=== PATIENT | male | born 1990 | race African-American/Black ===

== ENCOUNTER 2016-11-17 23:17 | Emergency (ER) | payer BC ==
[~2016-11-17] VITALS: Ht 177.8 cm; Wt 88.5 kg
[~2016-11-17 23:17] MED LIST: AZIT250T5 PO; BENZ-13 PO; CEFD300C3 PO; HYDR-3812 PO; IBUP-1780 PO; PRD20T PO; TRIA10.8 NSEACH
[2016-11-17] MEDS ORDERED: FAMO-119 PO (23:26)
[2016-11-17] MEDS ORDERED: DOXY100T2 PO (23:26)
[2016-11-17] MEDS ORDERED: ONDA4TAB8 PO (23:26)
--- NOTE | 2016-11-17 23:39 | ED Integumentary General ---
General Chief Complaint: Bite-Animal/Human/Insect Stated Complaint: SPIDER BITE,POSS FEVER,ACHES ALL OVER Nursing Triage Note: patient reports being bite by spider this morning at 0500. patient reports being evaluated for this earlier today and given medications for it Source: patient, RN notes reviewed Exam Limitations: no limitations History of Present Illness Time seen by provider: 23:22 Initial Comments Patient presents c/ complaint of suspected spider bite that occurred @ approx. 05:00 this AM. Was seen @ urgent care earlier today and given Doxycycline, Pepcid, and Zofran. Doesn't like Benadryl and has taken some Claritin. Was apparently not given any steroids by all reports. Timing/Duration: this morning Severity: moderate Location: torso (right flank) Possible Cause: insect bite, insect sting Associated Symptoms: other (aching all over) Allergies and Home Medications Allergies Coded Allergies: Penicillins (Verified Allergy, Unknown, 04/07/15) Home Medications Doxycycline Hyclate 100 Mg Tablet, 100 MG PO, (Reported) Famotidine 20 Mg Tablet, 20 MG PO, (Reported) Ondansetron 4 Mg Tab.rapdis, 4 MG PO, (Reported) Prednisone 20 Mg Tab, 30 MG PO BID, #15 Ref 0 Prescribed by: VERITO VILLA on 11/17/16 2343 Triamcinolone Acetonide 15 Gm Oint, 1 APPLIC TP BID, #30 Ref 0 Prescribed by: VERITO VILLA on 11/17/16 2343 Constitutional: see HPI Gastrointestinal: nausea (earlier) Musculoskeletal: see HPI, muscle pain, muscle cramps Skin: see HPI, lesions All Other Systems Reviewed Negative Unless Noted: Yes (Negative excepted noted.) Past Ebabprp-Nzydju-Xxhaao Hx Patient Social History Alcohol Use: Denies Use Recreational Drug Use: No Smoking Status: Never a Smoker Type Used: Cigarettes Recent Foreign Travel: No Contact w/Someone Who Travel: No Recent Infectious Disease Expo: No Recent Hopitalizations: No Seasonal Allergies Seasonal Allergies: No Surgeries HX Surgeries: Yes (WISDOM TEETH, ANKLE SURGERY) Surgeries: Orthopedic Respiratory Hx Respiratory Disorders: No Cardiovascular Hx Cardiac Disorders: No Neurological Hx Neurological Disorders: No Genitourinary Hx Genitourinary Disorders: No Gastrointestinal Hx Gastrointestinal Disorders: No Musculoskeletal Hx Musculoskeletal Disorders: No Endocrine Hx Endocrine Disorders: No HEENT HX ENT Disorders: No Cancer Hx Cancer: No Psychosocial Hx Psychiatric Problems: No Integumentary HX Skin/Integumentary Disorder: No Blood Transfusions Hx Blood Disorders: No Adverse Reaction to a Blood Tr: No Physical Exam Vital Signs Vital Sign - Last 12Hours 11/17/16 23:23 Temp 99.5 Pulse 98 Resp 18 B/P (MAP) 123/82 Pulse Ox 96 Capillary Refill : Less Than 3 Seconds General Appearance: WD/WN, mild distress Respiratory: no respiratory distress Neurologic/Psychiatric: no motor/sensory deficits, alert, oriented x 3 Skin: warm/dry Skin Problem Location: torso (right flank) Skin Problem Character: blanching, lesion, tenderness, other (pretty classical insect bite/sting c/ inoculation site and surrounding swelling c/w allergic reaction) Progress/Results/Core Measures Results/Orders My Orders Orders - VERITO VILLA DO Dexamethasone Pf Injection (Decadron Pf (11/17/16 23:45) Hydroxyzine Oral (Vistaril Capsule) (11/17/16 23:45) Vital Signs/I&O Vital Sign - Last 12Hours 11/17/16 23:23 Temp 99.5 Pulse 98 Resp 18 B/P (MAP) 123/82 Pulse Ox 96 Blood Pressure Mean: 96 Departure Impression Impression: Primary Impression: Allergic reaction to insect sting Disposition: HOME, SELF-CARE Condition: Stable Departure-Patient Inst. Decision time for Depature: 23:40 Referrals: SADIA CALIXTO MD Patient Instructions: Insect Bites and Stings (DC) Add. Discharge Instructions: All discharge instructions reviewed with patient and/or family. Voiced understanding. CONTINUE THE MEDS GIVEN EARLIER TODAY DIRECTED EXCEPT INCREASE THE PEPCID DOSE TO TWICE DAILY. RECOMMEND DOUBLE DOSE OF CLARITIN SINCE YOUR HAVEN'T TAKEN ANY YET. RETURN IF YOUR SYMPTOMS WORSEN. Scripts Triamcinolone Acetonide (Triamcinolone Acetonide 0.5% Ointment) 15 Gm Oint 1 APPLIC TP BID for INSECT BITE/STING, #30 TUBE 0 Refills Prov: VERITO VILLA DO 11/17/16 Prednisone (Prednisone) 20 Mg Tab 30 MG PO BID for BEGIN IN AM, 11/18, #15 TAB 0 Refills Prov: VERITO VILLA DO 11/17/16 VERITO VILLA DO November 17, 2016 23:39
[2016-11-17] MEDS ORDERED: TRIA15OI9 TP (23:43)
[2016-11-17] MEDS ORDERED: PRD20T PO (23:43)
[2016-11-17] MEDS ORDERED: hydrOXYzine (VISTARIL) 25 MG CAP PO ONE (23:45)
[2016-11-17] MEDS ORDERED: DEXAMETHASONE PF 10 MG/ML (DECADRON) VIAL IM ONE (23:45)
[2016-11-17 23:55] VITALS: BP 123/82
== END 2016-11-17 23:50 | disposition home or self-care (01) ==
LOC: EDUNIT# 23:17 → ER 23:20
DX: T63.481A Toxic effect of venom of other arthropod, accidental (unintentional), initial encounter (principal)
CPT/HCPCS: 96372; 99283